=== PATIENT | male | born 1970 | race Caucasian/White ===

== ENCOUNTER → 2017-01-19 | Day surgery (SDC) | payer OTHER ==
[~2017-01-19] MED LIST: ACETAMINOPHEN/HYDROcodone 325 MG/5 MG TAB ONE; APREPITANT 40 MG CAP ONE; BUPIVACAINE HCL PF 0.5% 10 ML VIAL ONE; BUPIVACAINE/EPINEPHRINE 0.25% PF 30 ML VIAL INFIL ONE; FLAX10002; FLUT1SPR5 EACH NARE; GABA100C4 PO; HYDROCORTISONE SOD SUCCINATE 100 MG VIAL ONE; KETOROLAC TROMETHAMINE 30 MG/ML (IVP) VIAL IV PUSH ONE; LACTATED RINGER'S 1000 ML INJ 1,000 ML ONE; LISI-515 PO; METO25TA3 PO; MIDAZOLAM HCL 2 MG/2 ML VIAL ONE; MULTTAB22; ONDANSETRON HCL 4 MG/2 ML VIAL IV PUSH ONE; PROPOFOL 200 MG/20 ML AMP IV ONE; TETA1INJ4 IM; TRIAMCINOLONE ACETONIDE 40 MG/ML VIAL ONE; ceFAZolin 2 GM PREMIX 50 ML ONE; methylPREDNISolone SOD SUCC 40 MG/1 ML VIAL ONE
--- NOTE | 2017-01-19 13:58 | TN ---
cc: INNA DAILEY M.D. DATE OF SURGERY: 01/19/2017 PREOPERATIVE DIAGNOSIS 1. Symptomatic umbilical hernia. 2. Left groin inguinodynia. POSTOPERATIVE DIAGNOSIS 1. Symptomatic umbilical hernia. 2. Left groin inguinodynia. PROCEDURE 1. Open repair umbilical hernia with mesh. 2. Injection of Marcaine and Depo-Medrol, left groin. SURGEON Dr. Inna Dailey. GEOSCIENCE SPECIALIST Mary Cruz, MS III. ANESTHESIA General with laryngeal mask. INDICATIONS This is a pleasant 46-year-old gentleman with prior history of multiple inguinal hernia repairs in the past by other surgeons, who has had chronic left groin inguinodynia. It has improved somewhat with local injections with Marcaine and Depo-Medrol. He has developed a small symptomatic umbilical hernia. He is desirous of operative repair and repeat injection in the left groin. INTRAOPERATIVE FINDINGS Less than 2 cm umbilical hernia defect containing omentum unincarcerated, primarily repaired and covered with mesh onlay. 6 cc of 0.5% Marcaine and 1 cc of Depo-Medrol injected in the left groin at the site of maximum tenderness as marked preoperatively. ESTIMATED BLOOD LOSS Minimal. DESCRIPTION OF PROCEDURE IN DETAIL The patient was identified as Ravinder Cullen, taken to the operating room and placed in supine position. Sequential compression devices were placed on bilateral lower extremities. Following induction of adequate general anesthesia with a laryngeal mask, the patient's abdomen and left groin were prepped and draped in the usual sterile fashion with Betadine. A timeout procedure was performed. Following completion of the timeout procedure to everyone's satisfaction within the room, the proposed supraumbilical transverse incision was made with a marking pen and infiltrated with local anesthetic. Local anesthetic was placed around the umbilicus. The incision was carried out with a scalpel and hemostasis controlled with electrocautery. The umbilical skin was lifted off the hernia sac. The hernia sac was entered. There are no incarcerated contents. Omentum was visualized. The anterior fascia was circumferentially cleared with electrocautery in the layer between the subcutaneous fat and the abdominal wall. The umbilical hernia defect was primarily approximated with interrupted and inverted 0 Prolene sutures. An appropriately size piece of mesh about 5 x 5 cm in size was cut from a 3 x 6 inch piece, placed in the onlay position, held taut in the onlay position with interrupted 0 Ethibond sutures. The wound was copiously irrigated. The umbilicus was reformed with interrupted 2-0 Vicryl sutures. 2-0 Vicryl and 4-0 Monocryl closed the incision. Dressings were applied with Mastisol, half-inch brown Steri-Strips, gauze and Tegaderm. Attention was turned to the left groin. The site previously marked was palpated. The local anesthetic with steroid was injected in and around the area of concern. It was massaged in place for a minute and a small Steri-Strip was placed over the needle injection site. The patient tolerated the procedures without apparent complication. Sponge, needle and instrument counts were correct at the end of the case. MD CAROLINA Monaco/SHANA /1:24 PM /1:48 PM
== END | disposition home or self-care (01) ==
LOC: ESDC 09:43
PROVIDERS: ATTEND Surgery Trauma Surgery
DX: K42.9 Umbilical hernia without obstruction or gangrene (principal); R10.30 Lower abdominal pain, unspecified
CPT/HCPCS: 00750; 49585; C1781; J0690; J1885; J2250; J2405; J2920; J3010; J3301; J7120; J8501; J1720